=== PATIENT | male | born 1990 | race Caucasian/White ===

== ENCOUNTER 2019-10-07 22:09 | Emergency (ER) | payer SELFPAY ==
[2019-10-07] MEDS ORDERED: DOCUSATE SODIUM 100 MG CAPSULE RT_EAR ONE (22:59)
--- NOTE | 2019-10-07 23:01 | ER Document Report ---
ED Medical Screen (RME) - General Chief Complaint: Foreign Body in Ear Stated Complaint: FOREIGN OBJECT IN RIGHT EAR Time Seen by Provider: 10/07/19 22:59 Notes: HPI: 29-year-old male presenting for evaluation of possible foreign body left ear. Patient uses earplugs at work and suddenly was not able to hear out of the right ear believes that a piece of the ear plug may have broken off in the right auditory canal. No fever. No discharge or bleeding I have greeted and performed a rapid initial assessment of this patient. A comprehensive ED assessment and evaluation of the patient, analysis of test results and completion of the medical decision making process will be conducted by additional ED providers PHYSICAL EXAMINATION: Left tympanic membrane and auditory canal are pearly villagran and clear. Unable to visualize the right tympanic membrane there is a large cerumen plug in the right auditory canal I have greeted and performed a rapid initial assessment of this patient. A comprehensive ED assessment and evaluation of the patient, analysis of test results and completion of medical decision making process will be conducted by an additional ED providers.
--- NOTE | 2019-10-07 23:55 | ER Document Report ---
Entered by JUNO HICKEY SCRIBE 10/07/19 [id number] Acting as scribe for:KURT BETTS DO ED ENT - General Chief Complaint: Foreign Body in Ear Stated Complaint: FOREIGN OBJECT IN RIGHT EAR Time Seen by Provider: 10/07/19 22:59 Primary Care Provider: JUSTICE RODRIGUEZ MD [ACTIVE STAFF] - Follow up as needed Mode of Arrival: Ambulatory Information source: Patient Notes: This 29 year old male patient presents to the ED today with complaints of foreign body in right ear. 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 He states that it feels like a piece of the ear plug may be stuck in his ear. He denies any past medical or surgical history. Denies use of tobacco, recreational drugs, or ETOH. Past Medical History - Social History Smoking Status: Never Smoker Cigarette use (# per day): No Chew tobacco use (# tins/day): No Smoking Education Provided: No Frequency of alcohol use: None Drug Abuse: None Occupation: [employer] Family History: Reviewed & Not Pertinent Patient has suicidal ideation: No Patient has homicidal ideation: No - Medical History Medical History: Negative Surgical Hx: Negative Review of Systems - Review of Systems Constitutional: No symptoms reported EENT: See HPI, Other - Foreign body in right ear Cardiovascular: No symptoms reported Respiratory: No symptoms reported Gastrointestinal: No symptoms reported Genitourinary: No symptoms reported Male Genitourinary: No symptoms reported Musculoskeletal: No symptoms reported Skin: No symptoms reported Hematologic/Lymphatic: No symptoms reported Neurological/Psychological: No symptoms reported -: Yes All other systems reviewed and negative Physical Exam - Vital signs Vitals: Temp Pulse Resp BP Pulse Ox 98.3 F 58 L 16 120/75 100 10/07/19 23:01 10/07/19 23:01 10/07/19 23:01 10/07/19 23:01 10/07/19 23:01 Interpretation: Normal - General General appearance: Appears well, Alert In distress: None - HEENT Head: Normocephalic Eyes: Normal Pupils: PERRL External canal: Cerumen impaction - Right ear canal Pharynx: Normal - Respiratory Respiratory status: No respiratory distress Chest status: Nontender Breath sounds: Normal Chest palpation: Normal - Cardiovascular Rhythm: Regular Heart sounds: Normal auscultation Murmur: No Friction rub: No Gallop: None auscultated - Abdominal Inspection: Normal Distension: No distension Bowel sounds: Normal Tenderness: Nontender - Abdomen soft Organomegaly: No organomegaly - Back Back: Normal, Nontender - Extremities General upper extremity: Normal inspection General lower extremity: Normal inspection. No: Edema - Neurological Neuro grossly intact: Yes Orientation: AAOx4 Amadeo Coma Scale Eye Opening: Spontaneous [place] Coma Scale Verbal: Oriented Amadeo Coma Scale Motor: Obeys Commands Amadeo Coma Scale Total: 15 - Psychological Associated symptoms: Normal affect, Normal mood - Skin Skin Temperature: Warm Skin Moisture: Dry Skin Color: Normal Course - Re-evaluation Re-evalutation: 10/08/19 00:28 MDM 29 year old with cerumen right ear canal. Better after irrigation here. Disucussed follow up and he expressed understanidng - Vital Signs Vital signs: Temp Pulse Resp BP Pulse Ox 98.3 F 58 L 16 120/75 100 10/07/19 23:01 10/07/19 23:01 10/07/19 23:01 10/07/19 23:01 10/07/19 23:01 Discharge - Discharge Clinical Impression: Right ear impacted cerumen Condition: Good Disposition: HOME, SELF-CARE Instructions: Cerumen Impaction ([facility]) Additional Instructions: Use over the counter ear wax removal fluid which is available at pharmacy. Return here for any problems or any concerns. Referrals: JUSTICE RODRIGUEZ MD [ACTIVE STAFF] - Follow up as needed I personally performed the services described in the documentation, reviewed and edited the documentation which was dictated to the scribe in my presence, and it accurately records my words and actions.
[2019-10-08 00:45] VITALS: BP 124/69
== END 2019-10-08 00:45 | disposition home or self-care (01) ==
LOC: ER 22:09
DX: H61.21 Impacted cerumen, right ear (principal)
CPT/HCPCS: 99282